=== PATIENT | male | born 1985 | race Caucasian/White ===

== ENCOUNTER 2020-01-02 13:38 | Emergency (ER) | payer BC, SELFPAY ==
[2020-01-02 13:39] VITALS: BP 141/94; PULSE 94; RESP 18; TEMP 36.9; O2SAT 97; BMI 34.9
--- NOTE | 2020-01-02 13:58 | EKG12_ITS ---
Test Reason : CP Blood Pressure : / mmHG Vent. Rate : 092 BPM Atrial Rate : 092 BPM P-R Int : 140 ms QRS Dur : 090 ms QT Int : 362 ms P-R-T Axes : 056 022 014 degrees QTc Int : 447 ms Normal sinus rhythm Normal ECG Confirmed by DEMARCUS CAGLE, BEKA ([id number]), metropolitan editor ROMI CHARLES ([id number]) on 01/04/2020 10:08:15 AM Referred By: BALBIR/ Confirmed By:BEKA TRACY MD
--- NOTE | 2020-01-02 13:59 | ED.VIS.GEN ---
History of Present Illness Chief Complaint: Chest Pain Detail of Chief Complaint: Intermittent past 3 days Informant: Patient Onset: Days - Onset 3 days ago. 5 episodes since onset. Context: Sudden Onset Timing: Intermittent Quality: Anterior left chest heartburn/indigestion Location: Left anterior chest Current Severity: - - Absent Maximum Severity: Severe Worsened by: Supine position last evening Relieved by: Nothing Associated Symptoms: No associated symptoms. Narrative: Patient is a 34-year-old male who quit smoking 8 years ago presents with left-sided chest pain described as a burning indigestion sensation. Onset 3 days ago. Had 5 episodes since onset. States he last approximately an hour. Last evening it lasted longer. He had to sleep in a recliner because the pain was worse when he was supine. He did not take anything for it. There is no associated symptoms. He states he does have pain in the left scapular region. He denies history of PE or DVT. He denies leg pain, swelling discoloration. He did not do anything strenuous this past weekend nor did he injure himself. He states he had a paternal grandfather have a massive heart attack at the age of 35 . Patient denies fever, chills night sweats. He denies rhinorrhea, congestion postnasal drainage. He denies ear pain or ringing in his ears. He denies headache. He denies hematemesis, melena medic easier. He denies intolerance to greasy or fried foods. He states he had pizza at 6 PM last evening. He denies urologic symptoms. Prior similar symptoms: No Recent Illness/Hospitalization: No - Past Medical History (1) No significant past medical history Status: Acute Past Medical History - Allergies and Home Meds Allergies/Adverse Reactions: Allergies No Known Allergies Allergy (Verified 01/02/20 13:39) Primary Care Physician: Care Physician,No Primary [Primary Care Provider] - Prior records reviewed: Yes Past Medical History: None Surgical History: no surgical history Lives: Spouse/ Significant Other Smoking Status: Former smoker Alcohol: Rare Drugs: None Review of Systems General: Denies: Chills, Fever, Malaise, Subjective, Sweats Eyes: Denies: Visual changes - bilaterally, Blurred Vision - bilaterally, Diplopia ENT: Denies: Rhinorrhea, Sore throat Cardiovascular: Reports: Chest pain. Denies: Palpitations, Heart racing Respiratory: Denies: Dyspnea, Cough, Dyspnea on exertion Gastrointestinal: Denies: Abdominal pain, Nausea, Vomiting, Diarrhea, Melena, Hematochezia Genitourinary: Denies: Dysuria, Hematuria, Frequency Musculoskeletal: Reports: Back pain. Denies: Myalgias, Arthralgias, Neck pain, Swelling, Extremity Pain Skin: Denies: Rash, Wounds Neurological: Denies: Headache, Weakness, Numbness Endocrine: Denies: Polyuria, Polydipsia Hematologic: Denies: Easy bruising, Easy bleeding Physical Exam Vital Signs/Narrative: Vital Signs Temp Pulse Resp BP Pulse Ox 01/02/20 13:39 98.4 F 94 18 141/94 H 97 Inital Vital Signs reviewed: Yes General: Well nourished, Well developed, No Acute Distress Head: Normocephalic, Atraumatic Eyes: Perrl, EOMI. Negative for: Pale conjunctiva, Scleral icterus ENT: Moist mucous membranes, No rhinorrhea, TM's clear Neck: Supple, Nontender, No lymphadenopathy, No JVD Cardiovascular: Regular rate, Regular rhythm, No murmurs, Normal S1, Normal S2 Respiratory: No distress, CTA bilaterally, Chest nontender Abdomen: Soft, Nontender, Nondistended, Normal bowel sounds, No masses Back: Nontender, Normal Inspection. Negative for: CVA tenderness Extremities: Nontender, No edema, - - There is no asymmetry, swelling, discoloration, leg vein distention, palpable cords or tenderness along the distribution of the deep venous system. Skin: Normal color, No rash Neurological: Alert, Oriented x3, Cranial nerves II-XII grossly intact, Normal Strength, Normal Sensation Psychological: Normal affect, Normal Mood Diagnostic/Tx/Re-eval Chest X-Ray - ED: 2 View, Read by ED Physician, Normal, Heart, Lungs, Mediastinum, Bony Structures, No Acute Disease 01/02/20 14:20 Chest PA and Lateral [RAD] Stat Laboratory Results 01/02/20 01/02/20 14:05 14:05 WBC 8.7 RBC 5.44 Hgb 15.2 Hct 47.1 MCV 86.6 MCH 27.9 MCHC 32.3 RDW Std Deviation 44.3 H RDW Coeff of Sandy 14.3 Plt Count 216 MPV 11.9 Immature Gran % (Auto) 0.700 Neut % (Auto) 64.5 Lymph % (Auto) 19.8 [place] % (Auto) 8.2 Eos % (Auto) 6.1 H Baso % (Auto) 0.7 Absolute Neuts (auto) 5.6 Absolute Lymphs (auto) 1.72 Nucleated RBC % 0 Sodium 140 Potassium 3.8 Chloride 108 H Carbon Dioxide 26.0 Anion Gap 6 BUN 14 Creatinine 0.84 Estim Creat Clear Calc 134.72 Est GFR (MDRD) Af Amer 133 Est GFR (MDRD) Non-Af 110 BUN/Creatinine Ratio 16.6 Glucose 88 Calcium 8.6 Total Bilirubin 0.40 AST 35 ALT 69 H Alkaline Phosphatase 95 Troponin I < 0.015 Total Protein 7.8 Albumin 4.1 Globulin 3.7 Albumin/Globulin Ratio 1.1 Lipase 82 - EKG Initial EKG Interpretation: Sinus Rhythm - Sinus rhythm with a ventricular rate of 92. WV interval is 140 ms. QRS duration 90 ms. QT duration 362 ms. [place] is normal. EKG is normal. - Medical Decision Making Zentz with anterior left chest pain describes heartburn worse when supine. This may represent GERD, esophagitis, gastritis, peptic ulcer disease, cardiac ischemia, biliary disease. Appropriate lab tests were obtained and EKG. EKG and troponin are normal. This essentially rules out cardiac etiology. Heart score is 1. Patient's history is consistent with GERD. He was treated with Pepcid 40 mg. He was discharged home. ED Disposition - Plan for ED Patient: Disposition: Home or Assisted Living Diagnosis: Left-sided chest pain, GERD (gastroesophageal reflux disease) Instructions: Gastroesophageal Reflux Disease (GERD) Prescriptions: Famotidine [Pepcid] 40 mg PO DAILY #30 tab Prescription Printed Referrals: Care Physician,No Primary [Primary Care Provider] - Doctor,Your [STAFF PHYSICIAN] - 1 Week if not improving
[2020-01-02 14:15] LABS: Absolute Lymphocyte Count 1.72 X10^3/uL (0.83-4.51); Absolute Neutrophil Count 5.6 X10^3/uL (2.0-7.7); Basophil# 0.06 X10^3/uL; Basophil% 0.7 % (0-1); Eosinophil# 0.53 X10^3/uL; Eosinophils% 6.1 % (0-5); Hematocrit 47.1 % (40-54); Hemoglobin 15.2 g/dL (13.0-16.5); Lymphocyte # 1.72 X10^3/ul (4.0); Lymphocyte % 19.8 % (19-41); Mean Corp Hgb Conc 32.3 g/dL (32-36); Mean Corpuscular Hgb 27.9 pg (27.0-32.0); Mean Corpuscular Volume 86.6 fL (80-94); Mean Platelet Vol. 11.9 fl (6.2-12.0); Monocyte# 0.71 X10^3/uL; Monocyte% 8.2 % (0-10); NRBC Flagged by Analyzer 0 % (0-5); Neutrophil # 5.61 X10^3/uL (2.7-7.7); Neutrophil % 64.5 % (47-70); Platelet Count 216 K/mm3 (150-450); RBC Distribution Width CV 14.3 % (11.6-14.6); RBC Distribution Width SD 44.3 fl (35.1-43.9); Red Blood Count 5.44 M/mm3 (4.6-6.2); White Blood Count 8.7 K/mm3 (4.4-11.0)
--- NOTE | 2020-01-02 14:20 | RAD_ITS ---
STUDY: X-RAY CHEST REASON FOR EXAM: Male, 34 years old. Left sided chest pain/heartburn TECHNIQUE: PA and lateral views of the chest. COMPARISON: None. FINDINGS: EKG electrodes are seen. The lungs are clear and expanded. There is no demonstrated pleural abnormality. Normal size heart. Normal mediastinum and nini. Normal visualized pulmonary arteries. Normal visualized aortic arch and descending thoracic aorta. Normal visualized thoracic spine. Normal visualized ribs, clavicles, and shoulders. There is no demonstrated abnormality of the visualized soft tissue structures of the upper abdomen. RAD/Chest PA and Lateral IMPRESSION: Normal x-ray examination of the chest. Electronically Signed: Davi Urena, at 14:37 EDT , Service support ,
[2020-01-02 14:35] VITALS: BP 130/97; PULSE 91; RESP 21; O2SAT 95
[2020-01-02 14:37] LABS: ALB/GLOB Ratio 1.1 RATIO (0.9-2.4); AST(SGOT) 35 U/L (15-37); Alanine Aminotransfer ALT/SGPT 69 U/L (16-61); Albumin, Serum 4.1 g/dL (3.2-5.0); Alkaline Phosphatase 95 U/L (45-117); Anion Gap 6 (5-15); BUN 14 mg/dL (7-18); BUN/Creat Ratio 16.6 RATIO (10-20); Calcium,Total 8.6 mg/dL (8.5-10.1); Chloride 108 mmol/L (98-107); Creatinine, Serum 0.84 mg/dL (0.70-1.30); EST Glomerular Filtration Rate 110 mL/min (>60); Est Glom Filt Rate - Afr Amer 133 mL/min (>60); Estimated Creatinine Clearance 134.72 ml/min; Globulin 3.7 g/dL (2.2-4.2); Glucose 88 mg/dL (74-106); Lipase 82 U/L (73-393); Potassium 3.8 mmol/L (3.5-5.1); Protein, Total 7.8 g/dL (6.4-8.2); Sodium Level 140 mmol/L (136-145)
[2020-01-02 15:30] VITALS: BP 137/97; PULSE 86; RESP 23; O2SAT 96
--- NOTE | 2020-01-02 15:31 | ED.RN ---
IV DC'ED, CATHETER INTACT, SMALL GAUZE DRESSING PLACED. DISCHARGE INSTRUCTIONS GIVEN TO AND REVIEWED WITH PATIENT, PATIENT DENIES QUESTIONS OR CONCERNS AND VOICES UNDERSTANDING OF DISCHARGE INSTRUCTIONS. PT AMBULATES OUT OF ROOM WITHOUT DIFFICULTY.
== END 2020-01-02 15:31 | disposition home or self-care (01) ==
PROVIDERS: Emergency Provider Emergency Medicine
DX: R07.89 Other chest pain (principal); K21.9 Gastro-esophageal reflux disease without esophagitis; Z82.49 Family history of ischemic heart disease and other diseases of the circulatory system; Z87.891 Personal history of nicotine dependence
CPT/HCPCS: 71046; 80053; 83690; 84484; 85025; 93005; 99284; A4216

== ENCOUNTER 2020-10-15 10:03 | Emergency (ER) | payer BC, SELFPAY ==
[2020-10-15 10:04] VITALS: BP 143/87; PULSE 84; RESP 14; TEMP 36.6; O2SAT 97; BMI 34.2
--- NOTE | 2020-10-15 10:15 | CT_ITS ---
STUDY: CT CHEST WITHOUT CONTRAST REASON FOR EXAM: Male, 35 years old. Right blunt chest wall trauma RADIATION DOSAGE (If Supplied By Facility): CTDIvol = ( 19.31 ) mGy, DLP = ( 728.64 ) mGycm TECHNIQUE: Transaxial imaging was performed without the administration of intravenous contrast material. Multiplanar coronal and sagittal images were reformatted. Individualized dose optimization techniques were used for this CT. COMPARISON: None. FINDINGS: There is a minimal degree of dependent bibasilar atelectases. There is no demonstrated pleural abnormality. Normal heart and pericardium. Normal mediastinum. Normal hilar regions. Normal unenhanced pulmonary arteries. Normal aorta arch and descending thoracic aorta. Normal osseous structures. There is no demonstrated abnormality of the visualized upper abdomen. CT/Chest without Contrast IMPRESSION: Normal unenhanced CT Chest examination. Electronically Signed: Davi Urena MD at 10:59 EDT , Service support ,
--- NOTE | 2020-10-15 10:15 | CT_ITS ---
STUDY: CT BRAIN WITHOUT CONTRAST REASON FOR EXAM: Male, 35 years old. Injury/concussion RADIATION DOSAGE (If Supplied By Facility): CTDIvol = ( 44.99 ) mGy, DLP = ( 796.11 ) mGycm TECHNIQUE: Transaxial CT imaging of the brain was performed without administration of intravenous contrast material. Individualized dose optimization techniques were used for this CT. COMPARISON: No relevant priors. FINDINGS: Normal soft tissue structures. Normal calvarium. Normal size ventricles and extra-axial spaces for the patient''s age. Normal white matter tracts of the cerebral hemispheres. Normal basal ganglia and thalami. Normal brainstem. Normal cerebellum. There is no intracranial hemorrhage. There are no findings of an acute ischemic infarction. Mucosal thickening of the maxillary sinuses bilaterally. Partial opacification of the ethmoid sinuses. Mucosal thickening along the anterior aspect of the right sphenoid sinus. CT/Brain/Head without Contrast IMPRESSION: Sinusitis. Electronically Signed: Davi Urena MD at 10:55 EDT , Service support ,
--- NOTE | 2020-10-15 10:15 | CT_ITS ---
STUDY: CT CERVICAL SPINE WITHOUT CONTRAST REASON FOR EXAM: Male, 35 years old. Injury RADIATION DOSAGE (If Supplied By Facility): CTDIvol = ( 27.08 ) mGy, DLP = ( 640.76 ) mGycm TECHNIQUE: High resolution transaxial imaging was performed without contrast material. Sagittal and coronal images were reconstructed. Individualized dose optimization techniques were used for this CT. COMPARISON: None FINDINGS: Normal craniovertebral junction. Normal anterior atlantoaxial articulation. Normal odontoid process. There is straightening of the normal cervical lordosis. Normal vertebral bodies and posterior osseous elements. C2-3: Normal endplates. Normal disc height and morphology. Normal central canal and intervertebral neuroforamina. C3-4: Normal endplates. Normal disc height and morphology. Normal central canal and intervertebral neuroforamina. C4-5: Normal endplates. Normal disc height and morphology. Normal central canal and intervertebral neuroforamina. C5-6: Normal endplates. Normal disc height and morphology. Normal central canal and intervertebral neuroforamina. C6-7: Normal endplates. Normal disc height and morphology. Normal central canal and intervertebral neuroforamina. C7-T1: Normal endplates. Normal disc height and morphology. Normal central canal and intervertebral neuroforamina. Normal visualized soft tissue structures. CT/Spine Cervical without Contras IMPRESSION: There is loss of the normal cervical lordosis. Electronically Signed: Davi Urena MD at 10:57 EDT , Service support ,
--- NOTE | 2020-10-15 10:15 | RAD_ITS ---
STUDY: X-RAY - RIGHT HAND REASON FOR EXAM: Male, 35 years old. Pain and soft tissue swelling overlying the ulnar aspect of the hand following injury. TECHNIQUE: 3 view(s) of the hand. COMPARISON: None. FINDINGS: Normal radiocarpal articulation. Normal distal radioulnar joint. Normal visualized carpal bones. Normal carpal articulations Normal carpometacarpal articulation of the thumb. Normal second through fifth carpometacarpal joints. Normal metacarpi. Normal metacarpophalangeal joint of the thumb. Normal interphalangeal joint of the thumb. Normal proximal and distal phalanges of the thumb. Normal metacarpophalangeal joints of the second through fifth fingers. Normal proximal and distal interphalangeal joints of the second through fifth fingers. Normal phalanges of the second through fifth fingers. Soft tissue swelling. RAD/Hand Min 3 Views IMPRESSION: Soft tissue swelling. Electronically Signed: Davi Urena MD at 11:00 EDT , Service support ,
--- NOTE | 2020-10-15 10:16 | ED.VIS.GEN ---
History of Present Illness Chief Complaint: Fall Informant: Patient Narrative: 35-year-old male brought to the emergency room by private vehicle in the accompaniment of his . On Thursday morning at approximately 0300 hours the patient was sleepwalking. He does this a handful of times per year. He fell down a flight of stairs and was found at the bottom by his . She attempted to wake him states it was extremely difficult and he believed he was in his bed so she gave him a blanket and pillow and about an hour later he came back upstairs and slept on the couch. He has had some repetitive conversations with her. He notes headache and injury to the back of his head as well as neck pain. He notes a right lower mid axillary anterior chest wall pain. No hemoptysis or shortness of breath. He notes his right hand is swollen and bruised particularly over the index and long fingers. He denies any hematuria or abdominal pain. No leg symptoms. No nausea and vomiting. Patient does note dizziness particularly with changing of positions Past Medical History - Allergies and Home Meds Allergies/Adverse Reactions: Allergies No Known Allergies Allergy (Verified 10/15/20 10:04) Past Medical History: - - GERD Surgical History: no surgical history Lives: With Family Smoking Status: Never smoker Drugs: None Review of Systems General: Denies: Chills, Fever, Sweats Eyes: Denies: Visual changes - bilaterally, Diplopia ENT: Denies: Rhinorrhea, Sore throat Cardiovascular: Reports: Chest pain. Denies: Palpitations Respiratory: Denies: Dyspnea, Cough, Dyspnea on exertion Gastrointestinal: Denies: Abdominal pain, Nausea, Vomiting, Diarrhea, Melena, Hematochezia Genitourinary: Denies: Dysuria, Hematuria, Frequency Musculoskeletal: Reports: Neck pain, Swelling, Extremity Pain. Denies: Back pain Skin: Denies: Rash, Wounds Neurological: Reports: Headache. Denies: Weakness, Numbness Physical Exam Vital Signs/Narrative: Vital Signs Temp Pulse Resp BP Pulse Ox 10/15/20 10:04 97.9 F 84 14 143/87 H 97 Inital Vital Signs reviewed: Yes General: Well nourished, Well developed, No Acute Distress Head: Normocephalic, Atraumatic Eyes: Perrl, EOMI ENT: Moist mucous membranes, No rhinorrhea Neck: Supple, - - Tender to palpation diffusely including the midline of the cervical spine Cardiovascular: Regular rate, Regular rhythm, No murmurs Respiratory: No distress, CTA bilaterally, Chest tenderness - Right lower mid axillary anterior chest wall tenderness. Abdomen: Soft, Nontender, Nondistended, Normal bowel sounds Back: Nontender, Normal Inspection Extremities: Tenderness - There is some mild swelling and bruising of the right hand particularly the volar aspect of the index and long finger. No obvious tendon dysfunction Skin: Normal color, No rash Neurological: Alert, Oriented x3, Cranial nerves II-XII grossly intact, Normal Strength, Normal Sensation Psychological: Normal affect, Normal Mood Diagnostic/Tx/Re-eval Clinical Impression(s) from Imaging Studies Brain CT 10/15/20 10:15 IMPRESSION: Sinusitis. Electronically Signed: Davi Urena MD at 10:55 EDT , Service support , Cervical Spine CT 10/15/20 10:15 IMPRESSION: There is loss of the normal cervical lordosis. Electronically Signed: Davi Urena MD at 10:57 EDT , Service support , Chest CT 10/15/20 10:15 IMPRESSION: Normal unenhanced CT Chest examination. Electronically Signed: Davi Urena MD at 10:59 EDT , Service support , Hand X-Ray 10/15/20 10:15 IMPRESSION: Soft tissue swelling. Electronically Signed: Davi Urena MD at 11:00 EDT , Service support , ADDENDUM: 10/15/20 1121 - Medical Decision Making T of the brain and cervical spine and chest are negative for acute fracture. My interpretation of the plain films of the right hand is an acute fracture of the middle phalanx of the middle finger. There appears to be more chronic appearing fracture of the ring finger middle phalanx. Patient will be treated for concussive symptoms supportive care. The finger fracture will have an AlumaFoam splint placed in brody tape. ED Disposition - Plan for ED Patient: Disposition: Home or Assisted Living Diagnosis: Fracture of middle phalanx of finger, Chest wall contusion, Cervical strain, acute, Concussion Instructions: ED Fracture, Finger, Closed, ED Contusion, Rib, ED Concussion Referrals: Alla Campuzano DO [Primary Care Provider] - 1 Week
[2020-10-15 12:02] VITALS: RESP 15
== END 2020-10-15 12:03 | disposition home or self-care (01) ==
PROVIDERS: Emergency Provider Emergency Medicine; PCP Internal Medicine
DX: S16.1XXA Strain of muscle, fascia and tendon at neck level, initial encounter (principal); S20.219A Contusion of unspecified front wall of thorax, initial encounter; S60.221A Contusion of right hand, initial encounter; S06.0X9A Concussion with loss of consciousness of unspecified duration, initial encounter; S62.622A Displaced fracture of middle phalanx of right middle finger, initial encounter for closed fracture; W10.9XXA Fall (on) (from) unspecified stairs and steps, initial encounter; F51.3 Sleepwalking [somnambulism]; K21.9 Gastro-esophageal reflux disease without esophagitis
CPT/HCPCS: 70450; 70460; 71250; 72125; 73130; 99283

== ENCOUNTER 2023-10-31 13:06 | Emergency (ER) | payer BC, SELFPAY ==
[2023-10-31 13:09] VITALS: BP 145/96; PULSE 112; RESP 16; TEMP 36.3; O2SAT 99
[2023-10-31 14:01] LABS: Absolute Lymphocyte Count 0.73 X10^3/uL (0.83-4.51); Absolute Neutrophil Count 4.8 X10^3/uL (2.0-7.7); Basophil# 0.05 X10^3/uL; Basophil% 0.8 % (0-1); Eosinophil# 0.04 X10^3/uL; Eosinophils% 0.6 % (0-5); Hemoglobin 17.3 g/dL (13.0-16.5); Lymphocyte # 0.73 X10^3/ul (0.83-4.51); Lymphocyte % 11.7 % (19-41); Mean Corpuscular Hgb 27.1 pg (27.0-32.0); Mean Corpuscular Volume 84.6 fL (80-94); Mean Platelet Vol. 11.8 fl (6.2-12.0); Monocyte# 0.65 X10^3/uL; Monocyte% 10.4 % (0-10); NRBC Flagged by Analyzer 0 % (0-5); Neutrophil # 4.76 X10^3/uL (2.7-7.7); Platelet Count 181 K/mm3 (150-450); RBC Distribution Width CV 14.3 % (11.6-14.6); RBC Distribution Width SD 43.7 fl (35.1-43.9); Red Blood Count 6.38 M/mm3 (4.6-6.2); White Blood Count 6.3 K/mm3 (4.4-11.0)
--- NOTE | 2023-10-31 14:07 | EX.ED.DYSGE1 ---
HPI History of Present Illness Chief Complaint: Fever Detail of Chief Complaint: Fever to 104.9. Informant: patient and spouse/S.O. Limited: other (Sent from urgent care because of concern for appendicitis) Onset/Context/Timing Onset: Days Context: Sudden Onset Timing: Intermittent and Waxes and wanes Quality: Intermittent fever with Tmax 104.9 and pain right posterior neck. Location: HPI Current Severity: Mild Maximum Severity: Moderate Worsened by: Neck pain worse with palpation Relieved by: Nothing Associated Symptoms Associated Symptoms: Lack of appetite, fatigue, Narrative Narrative: Patient is a healthy 38-year-old male. Went to urgent care. Sent to the emergency room because of concern for appendicitis because he had pain in the right lower quadrant. Patient does report decreased appetite. Patient does endorse temperature up to 104.9. He denies headache. Denies posterior neck pain on the right side. There is denies neck stiffness. Denies upper respiratory tract infectious symptoms. Denies GI symptoms. Does complain of aches. Denies urologic symptoms. Patient and spouse were out mushroom hunting several days ago. The area they are at is infested with ticks. They state they always check. They did not notice any ticks on them. At the same time the patient was unaware that he had a erythematous rash about 5 cm in diameter medial right antecubital fossa. Prior similar symptoms: No Recent Illness/Hospitalization: No PFSH PFSH Home Medications doxycycline monohydrate 100 mg capsule 100 mg PO BID #14 CAPSULES 10/31/23 [Rx Last Taken Unknown] Allergy/AdvReac Type Severity Reaction Status Date / Time morphine Allergy Severe PT UNSURE Verified 10/31/23 13:08 OF REACTION Surgical History no surgical history no surgical history Social History (Updated 10/31/23 @ 14:[address] Ezio Plaza MD) household members: spouse Smoking Status: Never smoker ROS ROS ED Constitutional Constitutional ED: Reports chills, fever(s) and sweats; Denies subjective or weight loss Eyes Eyes: Denies blurry vision, change in vision or diplopia ENT ENT ED: Denies ear pain, rhinorrhea or sore throat Cardiovascular Cardiovascular: Denies chest pain or palpitations Respiratory/Chest Respiratory/Chest: Denies cough, dyspnea or dyspnea on exertion Genitourinary Genitourinary ED: Denies dysuria, hematuria or urinary frequency Musculoskeletal Musculoskeletal: Reports myalgias and neck pain; Denies arthralgias or back pain Integumentary Denies rash Neurologic Neurologic: Denies headache(s), paresthesias or weakness Hematologic/Lymphatic Hematologic/Lymphatic: Reports systems reviewed and no addt'l complaints, except as documented EXAM Physical Exam Const Vital Signs: 10/31/23 13:09 10/31/23 14:41 10/31/23 15:08 Temperature 97.3 F L 103 F H Temperature Source Oral Oral Pulse Rate 112 H Respiratory Rate 16 Respiratory Effort Normal Respiratory Pattern Normal Blood Pressure 145/96 H Blood Pressure Mean 112 Pulse Ox 99 Oxygen Delivery Method Room Air 10/31/23 15:00 Temperature 102.3 F H Temperature Source Oral Pulse Rate 108 H Respiratory Rate 18 Respiratory Effort Respiratory Pattern Blood Pressure 134/80 H Blood Pressure Mean 98 Pulse Ox 95 Oxygen Delivery Method Room Air Positive well nourished and well developed Constitutional Narrative: Vitals are marked for slight elevated blood pressure and heart rate. Patient is afebrile. General Appearance ED: well developed and NAD; Negative for pallor HEENT Reports moist mucous membranes HEENT Narrative: Head is atraumatic no cephalic. Ears normal. Nares patent. Posterior pharynx normal. Uvula is midline. No deviation with protrusion. Neck is supple. Eyes PERRL and EOMs intact bilaterally General Eye ED: Negative for pale conjunctiva or scleral icterus Neck no lymphadenopathy, supple and no JVD Chest Wall inspection of chest normal and palpation of chest normal Resp normal respiratory effort and clear to auscultation bilaterally Cardio regular rhythm, S1 normal heart sound, S2 normal heart sound and no murmurs Rate: tachycardic GI normal to inspection, nondistended, normoactive bowel sounds, non-tender, non-distended and no masses; Negative for hepatosplenomegaly Auscultation: hypoactive bowel sounds Narrative: There is no elisha lymphadenopathy. Back/Spine no CVA tenderness Extremity Extremity Narrative: Patient has a erythematous rash which does sarina right antecubital fossa. There is no palpable cords. There is no asymmetry of the upper extremities. There is no axillary lymphadenopathy. Neuro oriented x3, CN's II-XII intact bilaterally and no sensory deficits noted Neuro Narrative: There is no clonus or Babinski sign. There is no dysmetria. Sensorium / Orientation: alert Motor Exam: strength 5/5 throughout Psych mental status grossly normal Skin no rashes or lesions noted, no wounds and skin turgor normal General Skin Exam: Negative for jaundice or pallor MDM MDM MDM Narrative Medical decision making narrative: Patient with fever up to 100.9. He has no peritoneal findings or guarding. His abdominal exam is not consistent with appendicitis. There is a negative Rovsing sign. Negative foot tap. Negative obturator sign. Presently is afebrile. With patient having the erythematous rash out mushroom hunting concerned he may have Lyme's disease. Lyme titer was obtained. CBC was obtained to see if there is a significant white count or shift. Because of this. P.o. intake BMP was obtained. IV fluids were ordered. Lab Data Attestation: I reviewed the patient's lab results. Lab results narrative: CBC is marked for an elevated hemoglobin 17.3. White count is 6.3 with a slight shift. There is no bandemia. There is no eosinophilia noted either. Basic metabolic panel is unremarkable. Sodium is 134 which is slightly below the lower end of normal. Glucose is slightly elevated. CO2 anion gap are normal. Labs: Laboratory Results - last 24 hr 10/31/23 13:55 WBC 6.3 RBC 6.38 H Hgb 17.3 H Hct 54.0 MCV 84.6 MCH 27.1 MCHC 32.0 RDW Std Deviation 43.7 RDW Coeff of Sandy 14.3 Plt Count 181 MPV 11.8 Immature Gran % (Auto) 0.500 Neut % (Auto) 76.0 H Lymph % (Auto) 11.7 L [place] % (Auto) 10.4 H Eos % (Auto) 0.6 Baso % (Auto) 0.8 Absolute Neuts (auto) 4.8 Absolute Lymphs (auto) 0.73 L Nucleated RBC % 0 Sodium 134 L Potassium 3.7 Chloride 100 Carbon Dioxide 27.0 Anion Gap 7 BUN 17 Creatinine 1.18 Est GFR (MDRD) Af Amer 88 Est GFR (MDRD) Non-Af 73 BUN/Creatinine Ratio 14.4 Glucose 108 H Calcium 9.2 Treatment and Re-Evaluation :: Patient was reassessed at 1433. Patient spiked a temperature to 103.9. Tylenol was ordered. He is getting his fluid bolus. Will start patient on doxycycline which will cover his cervical adenitis and in the event that he has Lyme's disease. Patient did urinate after fluid bolus. Plan is discharge with prescription for doxycycline which will cover the cervical adenitis and in the event that his Lyme titer is positive. Discharge Plan Triage Chief Complaint: Fever Other Complaint: Abd Pain ED Provider: Ezio Plaza Dx/Rx/DC Orders Clinical Impression: Fever in adult, Erythematous rash, Acute cervical adenitis, Sinus tachycardia seen on cardiac exercise specialist Instructions: ED ADENITIS Cervical Abx Tx, ED Lyme Disease, ED Tick Facts Prescriptions: New doxycycline monohydrate 100 mg capsule 100 mg PO BID Qty: 14 0RF Primary Care Provider: Alla Campuzano Referrals: Alla Campuzano DO [Primary Care Provider] - 1 Week if not improving Disposition Disposition: Home, Self Care
[2023-10-31 14:15] LABS: Anion Gap 7 (5-15); BUN 17 mg/dL (7-18); BUN/Creat Ratio 14.4 RATIO (10-20); Calcium,Total 9.2 mg/dL (8.5-10.1); Chloride 100 mmol/L (98-107); Creatinine, Serum 1.18 mg/dL (0.70-1.30); EST Glomerular Filtration Rate 73 mL/min (>60); Est Glom Filt Rate - Afr Amer 88 mL/min (>60); Glucose 108 mg/dL (74-106); Potassium 3.7 mmol/L (3.5-5.1); Sodium Level 134 mmol/L (136-145)
[2023-10-31] MEDS: 0.9% Normal Saline (1000mL) 1,000 ML 1000 ML IV (14:38)
[2023-10-31] MEDS: Acetaminophen 325 MG Tablet 650 MG PO (14:39)
[2023-10-31 14:40] VITALS: BMI 36.4
[2023-10-31 14:41] VITALS: TEMP 39.4
[2023-10-31 15:00] VITALS: BP 134/80; PULSE 108; RESP 18; TEMP 39.1; O2SAT 95
[2023-10-31] MEDS: Doxycycline 100 MG CAPSULE PO (15:17)
[2023-10-31 16:00] VITALS: BP 138/89; PULSE 102; RESP 18; TEMP 38.5; O2SAT 97
[2023-11-03 14:09] LABS: Lyme IGG CIA Negative (Negative); Lyme IGM CIA Positive (Negative); Lyme Scn Total Ab w/Rflx Positive (Negative)
== END 2023-10-31 16:01 | disposition home or self-care (01) ==
PROVIDERS: Emergency Provider Emergency Medicine; PCP Internal Medicine; Visit Provider Emergency Medicine
DX: L04.0 Acute lymphadenitis of face, head and neck (principal); R50.9 Fever, unspecified; R00.0 Tachycardia, unspecified; R10.31 Right lower quadrant pain; R21 Rash and other nonspecific skin eruption
CPT/HCPCS: 80048; 85025; 86618; 96360; 99285; J7030; A4216